=== PATIENT | female | born 1990 | race Two or more races ===

== ENCOUNTER 2018-12-07 17:50 | Emergency (ER) | payer OTHER ==
--- NOTE | 2018-12-07 18:09 | ED ---
Dizziness - HPI Summary HPI Summary: This pt is a 28 y/o female presenting to [facility] c/o feeling faint and dizzy today. Friend reports they were walking outside for about 20 minutes and upon approaching [place] pt began to feel "faint." Pt states she felt like she was hearing less and less. She also notes she was spacing out of the conversation, "but not normal zoning out." Denies chest pain, SOB, nausea, vomiting. She notes she had cold symptoms for the past few days, denies symptoms now. Pt reports a cough, for which she is taking an OTC medication. Denies fever. PMHx includes hypothyroidism, hidradenitis suppurativa. Her medications include thyroid medications, multivitamins. She admits to smoking marijuana last night. Denies tobacco and alcohol use. LMP: 3 weeks ago. Denies contraceptive pills. - History Of Current Complaint Chief Complaint: EDDizziness Stated Complaint: ZONING OUT, FEELING GIDDY PER PT FRIEND Time Seen by Provider: 12/07/18 17:59 Hx Obtained From: Patient, Other: - Friend Onset/Duration: Suddenly Timing: Minutes Severity Currently: Moderate Aggravating Factor(s): Nothing Alleviating Factor(s): Nothing Associated Signs And Symptoms: Negative: Chest Pain, SOB, Fever, Chills - Allergies/Home Medications Allergies/Adverse Reactions: Allergies Allergy/AdvReac Type Severity Reaction Status Date / Time No Known Allergies Allergy Verified 12/07/18 17:54 PMH/Surg Hx/FS Hx/Imm Hx Endocrine/Hematology History: Reports: Hx Thyroid Disease - Hypothyroidism, Autoimmune Disease - hidradenitis suppurativa Cardiovascular History: Denies: Hx Hypertension Neurological History: Denies: Hx Seizures - Surgical History Surgery Procedure, Year, and Place: Removal of subcutaneous growth (local anesthesia) - February 2018. Infectious Disease History: No Infectious Disease History: Denies: Traveled Outside the [place] in Last 30 Days - Family History Known Family History: Negative: Cardiac Disease - Social History Alcohol Use: None Substance Use Type: Reports: Marijuana Smoking Status (MU): Never Smoked Tobacco Review of Systems Negative: Fever Negative: Chest Pain Positive: Cough. Negative: Shortness Of Breath Negative: Vomiting, Nausea Neurological: Other - POS: dizziness, spacing out, All Other Systems Reviewed And Are Negative: Yes Physical Exam - Summary Physical Exam Summary: VITAL SIGNS: Reviewed. GENERAL: Patient is a well-developed and obese male who is lying comfortable in the stretcher. Patient is not in any acute respiratory distress. HEAD AND FACE: No signs of trauma. No ecchymosis, hematomas or skull depressions. No sinus tenderness. EYES: PERRLA, EOMI x 2, No injected conjunctiva, no nystagmus. EARS: Hearing grossly intact. Ear canals and tympanic membranes are within normal limits. MOUTH: Oropharynx within normal limits. NECK: Supple, trachea is midline, no adenopathy, no JVD, no carotid bruit, no c- spine tenderness, neck with full ROM. CHEST: Symmetric, no tenderness at palpation LUNGS: Clear to auscultation bilaterally. No wheezing or crackles. CVS: Tachycardic rate and regular rhythm, S1 and S2 present, no murmurs or gallops appreciated. Patient is hypertensive. ABDOMEN: Soft, non-tender. No signs of distention. No rebound no guarding, and no masses palpated. Bowel sounds are normal. EXTREMITIES: FROM in all major joints, no edema, no cyanosis or clubbing. NEURO: Alert and oriented x 3. No acute neurological deficits. Speech is normal and follows commands. SKIN: Dry and warm Triage Information Reviewed: Yes Vital Signs On Initial Exam: Initial Vitals Temp Pulse Resp BP Pulse Ox 96.2 F 126 20 180/122 99 12/07/18 17:52 12/07/18 17:52 12/07/18 17:52 12/07/18 17:52 12/07/18 17:52 Vital Signs Reviewed: Yes Diagnostics - Vital Signs Vital Signs Temp Pulse Resp BP Pulse Ox 12/07/18 17:52 96.2 F 126 20 180/122 99 - Laboratory Result Diagrams: 12/07/18 18:24 12/07/18 18:24 Lab Statement: Any lab studies that have been ordered have been reviewed, and results considered in the medical decision making process. - Radiology Chest XR Radiology Interpretation Completed By: ED Physician Summary of Radiographic Findings: Negative chest XR. Pending official radiology report. - EKG 18:25 Cardiac Rate: Tachycardia - at 105 bpm EKG Rhythm: Sinus Tachycardia EKG Comparison: Other - No old EKG for comparison Summary of EKG Findings: Q wave in leads III and aVF. ST elevation, probable normal early repolarization pattern. Re-Evaluation - Re-Evaluation First Eval Re-Evaluation Time: 16:05 Comment: Manual blood pressure is 178/100. Second Eval Re-Evaluation Time: 19:00 Comment: Friend reports the pt ate a brownie that had marijuana in it. She didn' t know until now. Pt states she probably had double dose of marijuana. Dizzy Course/Dx - Course Assessment/Plan: This pt is a 28 y/o female presenting to [facility] c/o feeling faint and dizzy today. Friend reports they were walking outside for about 20 minutes and upon approaching [place] pt began to feel "faint." Pt states she felt like she was hearing less and less. She also notes she was spacing out of the conversation, "but not normal zoning out." Denies chest pain, SOB, nausea, vomiting. She notes she had cold symptoms for the past few days, denies symptoms now. Pt reports a cough, for which she is taking an OTC medication. Denies fever. PMHx includes hypothyroidism, hidradenitis suppurativa. Her medications include thyroid medications, multivitamins. She admits to smoking marijuana last night. Denies tobacco and alcohol use. LMP: 3 weeks ago. Denies contraceptive pills. Blood work is ordered and is still pending. Patient is hemodynamically stable. The patient is feeling better. The patient is not in any distress. At this time the patient will be signed out to Dr. Ulloa to follow up the blood work and further assessment and disposition of this patient. - Diagnoses Provider Diagnoses: Dizziness Discharge - Sign-Out/Discharge Documenting (check all that apply): Sign-Out Patient Signing out patient TO: Fidel Ulloa - pending lab results and dispo Patient Received Moderate/Deep Sedation with Procedure: No - Discharge Plan Condition: Stable Referrals: No Primary Care Phys,NOPCP [Primary Care Provider] - - Attestation Statements Document Initiated by Scribe: Yes Documenting Scribe: Eliana Bowles Provider For Whom Scribe is Documenting (Include Credential): Bradley Becerra MD Scribe Attestation: Eliana Solis, scribed for Bradley Becerra MD on 12/07/18 at 1900. Status of Scribe Document: Ready
[2018-12-07 18:32] LABS: ABS Basophils 0.2 10^3/ul (0-0.2); ABS Eosinophils 0.2 10^3/ul (0-0.6); ABS Lymphocytes 4.5 10^3/ul (1.0-4.8); ABS Monocytes 0.5 10^3/ul (0-0.8); ABS Neutrophils 6.3 10^3/ul (1.5-7.7); ABS Nucleated RBC 0 10^3/ul; Eosinophil % 1.6 %; Hematocrit 38 % (33-41); Hemoglobin 12.6 g/dL (12.0-16.0); Lymphocyte % 38.4 %; Mean Corpuscular HGB Conc 33 g/dL (31-36); Mean Corpuscular Hemoglobin 28 pg (27-31); Mean Corpuscular Volume 85 fL (80-97); Nucleated Red Blood Cells % 0.1; Platelet Count 340 10^3/uL (150-450); Red Blood Count 4.46 10^6 /uL (3.70-4.87); Red Cell Distribution Width 14 % (10.5-15); White Blood Count 11.7 10^3/uL (3.5-10.8)
[2018-12-07 18:40] LABS: Influenza A Molecular NEGATIVE (Negative); Influenza B Molecular NEGATIVE (Negative)
[2018-12-07 18:52] LABS: ALT 32 U/L (7-52); Albumin 4.2 g/dL (3.2-5.2); Albumin/Globulin Ratio 1.1 (1-3); Alkaline Phosphatase 64 U/L (34-104); BUN/Creatinine Ratio 20.3 (8-20); Blood Urea Nitrogen 14 mg/dL (6-24); CO2 Carbon Dioxide 22 mmol/L (22-32); Calcium 9.3 mg/dL (8.6-10.3); Chloride 102 mmol/L (101-111); EGFR African American 120.9 (>60); EGFR Non-African American 99.9 (>60); Glucose 159 mg/dL (70-100); Sodium 136 mmol/L (135-145); Total Protein 8.2 g/dL (6.4-8.9)
[2018-12-07 18:53] LABS: Troponin I 0.01 ng/mL (<0.04)
--- NOTE | 2018-12-07 19:12 | ED ---
Progress - Progress Note Progress Note: The pt is a signout from Dr. Becerra to Dr. Ulloa pending bloodwork results. Re-Evaluation - Re-Evaluation First Eval Re-Evaluation Time: 16:05 Comment: Manual blood pressure is 178/100. Second Eval Re-Evaluation Time: 19:00 Comment: Friend reports the pt ate a brownie that had marijuana in it. She didn' t know until now. Pt states she probably had double dose of marijuana. Third Eval Re-Evaluation Time: 20:20 Change: Improved Comment: The pt is stable, ambulating around the ED appropriately, and ready for discharge. Course/Dx - Course Course Of Treatment: The pt is a signout from Dr. Becerra to Dr. Ulloa pending bloodwork results. The pt ambulated around the ED at 2019 and she is stable and ready for discharge. She will be sent home with a dx of marijuana use. - Diagnoses Provider Diagnoses: Marijuana use Discharge - Sign-Out/Discharge Documenting (check all that apply): Patient Departure, Receiving Sign-Out Receiving patient FROM: Bradley Becerra Patient Received Moderate/Deep Sedation with Procedure: No - Discharge Plan Condition: Stable Disposition: HOME Referrals: [facility] [Outside] Additional Instructions: Return to the emergency department with any new or worsening symptoms. - Attestation Statements Document Initiated by Scribe: Yes Documenting Scribe: Lashay Song Provider For Whom Makayla is Documenting (Include Credential): Fidel Ulloa MD. Scribe Attestation: Lashay Solis, scribed for Fidel Ulloa MD. on 12/07/18 at 2020. Status of Scribe Document: Ready
[2018-12-07 19:13] LABS: AST 22 U/L (13-39); Anion Gap 12 mmol/L (2-11); Magnesium 1.9 mg/dL (1.9-2.7); Potassium 3.6 mmol/L (3.5-5.0)
[2018-12-07 19:28] LABS: Alcohol < 10 mg/dL (<10)
[2018-12-07 19:35] LABS: TSH (Thyroid Stimulating Horm) 5.79 mcIU/mL (0.34-5.60)
[2018-12-07 20:28] VITALS: BP 149/99
== END 2018-12-07 20:22 | disposition home or self-care (01) ==
LOC: ED 17:50
DX: R42 Dizziness and giddiness (principal); F12.90 Cannabis use, unspecified, uncomplicated; R05 Cough; R00.0 Tachycardia, unspecified; E03.9 Hypothyroidism, unspecified; L73.2 Hidradenitis suppurativa
CPT/HCPCS: 36415; 71046; 80053; 80320; 83605; 83735; 83880; 84443; 84484; 85025; 85379; 93005; 99282; G0480

== ENCOUNTER 2021-08-15 17:10 | Inpatient (IN) ==
[2021-08-15] MEDS ORDERED: Nitro 2% OINT (Nitroglycerin) 1 INCH/PAK TOPICAL ONE (18:59)
[2021-08-15 19:03] LABS: ABS Basophils 0.1 10^3/ul (0-0.2); ABS Eosinophils 0.1 10^3/ul (0-0.6); ABS Lymphocytes 1.9 10^3/ul (1.0-4.8); ABS Monocytes 0.4 10^3/ul (0-0.8); ABS Neutrophils 7.6 10^3/ul (1.5-7.7); Eosinophil % 0.6 %; Hematocrit 36 % (35-47); Hemoglobin 11.6 g/dL (12.0-16.0); Lymphocyte % 19.2 %; Mean Corpuscular HGB Conc 32 g/dL (31-36); Mean Corpuscular Hemoglobin 27 pg (27-31); Mean Corpuscular Volume 85 fL (80-97); Nucleated Red Blood Cells % 0.1; Platelet Count 343 10^3/uL (150-450); Red Blood Count 4.26 10^6 /uL (3.70-4.87); Red Cell Distribution Width 19 % (10-15); White Blood Count 10.1 10^3/uL (3.5-10.8)
[2021-08-15] MEDS ORDERED: Furosemide 20 mg/2 ml IV VIAL IV ONE (19:17)
[2021-08-15 19:19] LABS: Influenza A Molecular Negative (Negative); Influenza B Molecular Negative (Negative); Rapid COVID-19 Molecular Undetected (Undetected)
[2021-08-15 19:20] LABS: ALT 17 U/L (7-52); AST 21 U/L (13-39); Albumin 3.9 g/dL (3.2-5.2); Albumin/Globulin Ratio 0.9 (1-3); Alkaline Phosphatase 80 U/L (35-149); Anion Gap 8 mmol/L (2-11); Blood Urea Nitrogen 13 mg/dL (6-24); CO2 Carbon Dioxide 23 mmol/L (22-32); Calcium 9.4 mg/dL (8.6-10.3); Chloride 104 mmol/L (101-111); Globulin 4.3 g/dL (2-4); Glucose 117 mg/dL (70-100); Magnesium 1.9 mg/dL (1.9-2.7); Potassium 4.2 mmol/L (3.5-5.0); Sodium 135 mmol/L (135-145); Total Protein 8.2 g/dL (6.4-8.9); eGFR CKD-EPI 101.2 (>60)
[2021-08-15 19:25] LABS: HCG Pregnancy < 0.60 mIU/mL
[2021-08-15 19:39] LABS: Troponin I 0.05 ng/mL (<0.03)
[2021-08-15] MEDS ORDERED: Iodixanol (CONTRAST) 320 MG/ML 100 ML SDV IV ONE (20:42)
[2021-08-15] MEDS ORDERED: Albuterol HFA INHALER 8 gm MDI INH PRN (21:35)
[2021-08-15 21:36] LABS: C Reactive Protein 25.94 mg/L (<8.01)
[2021-08-15 21:44] LABS: Erythrocyte Sed Rate 27 mm/Hr (0-19)
[2021-08-15 21:55] LABS: Urine Appearance Clear; Urine Bilirubin Negative (Negative); Urine Blood Negative (Negative); Urine Color Yellow; Urine Glucose Negative (Negative); Urine Ketones Negative (Negative); Urine Nitrite Negative (Negative); Urine Protein 1+(30 mg/dL) (Negative); Urine Specific Gravity 1.005 (1.002-1.030); Urine Urobilinogen Negative (Negative)
[2021-08-15 22:03] LABS: Urine Bacteria Absent (Absent); Urine Red Blood Cell Absent (Absent); Urine Squamous Epithelial Cell Present (Absent); Urine White Blood Cell Absent (Absent)
[2021-08-15] MEDS ORDERED: Furosemide 40 mg/4 ml IV VIAL IV SLOW PU ONE (22:23)
[2021-08-15 22:43] LABS: TSH Ultra Thyroid Stim Horm 5.89 mcIU/mL (0.34-5.60)
[2021-08-15 23:25] LABS: Creatine Kinase 41 U/L (10-223)
[2021-08-15] MEDS ORDERED: Labetalol IV 5 MG/ML 20 ml VIAL IV PUSH ONE (23:25)
[2021-08-15] MEDS: Enoxaparin 40 MG/0.4 ML SYR SUBCUT SCH (23:32)
[2021-08-15 23:56] LABS: T4, Total 12.51 mcg/dL (6.09-12.23)
[2021-08-16 00:10] LABS: Troponin I 0.04 ng/mL (<0.03)
[2021-08-16 01:41] LABS: Urine Benzodiazepine Screen None Detected (None Detect); Urine Cannabinoids Screen None Detected (None Detect); Urine Opiates Screen None Detected (None Detect)
[2021-08-16] MEDS ORDERED: Labetalol IV 5 MG/ML 20 ml VIAL IV PUSH ONE (03:45)
[2021-08-16] MEDS: Labetalol IV 5 MG/ML 20 ml VIAL IV PUSH PRN ×3 (06:15→20:45)
[2021-08-16] MEDS: Enoxaparin 40 MG/0.4 ML SYR SUBCUT SCH (20:44)
[2021-08-17] MEDS ORDERED: Labetalol IV 5 MG/ML 20 ml VIAL IV PUSH ONE (00:28)
[2021-08-17 05:51] LABS: ABS Basophils 0.1 10^3/ul (0-0.2); ABS Eosinophils 0.1 10^3/ul (0-0.6); ABS Monocytes 0.4 10^3/ul (0-0.8); ABS Neutrophils 5.6 10^3/ul (1.5-7.7); Eosinophil % 1.5 %; Hematocrit 35 % (35-47); Lymphocyte % 24.1 %; Mean Corpuscular HGB Conc 32 g/dL (31-36); Mean Corpuscular Hemoglobin 27 pg (27-31); Mean Corpuscular Volume 86 fL (80-97); Mean Platelet Volume 8.8 fL (7.4-10.4); Nucleated Red Blood Cells % 0.1; Platelet Count 312 10^3/uL (150-450); Red Blood Count 4.05 10^6 /uL (3.70-4.87); Red Cell Distribution Width 19 % (10-15); White Blood Count 8.2 10^3/uL (3.5-10.8)
[2021-08-17 06:24] LABS: Albumin 3.5 g/dL (3.2-5.2); Albumin/Globulin Ratio 0.9 (1-3); Calcium 9.2 mg/dL (8.6-10.3); Globulin 4.1 g/dL (2-4); Potassium 3.8 mmol/L (3.5-5.0); Total Bilirubin 0.8 mg/dL (0.2-1.0); Total Protein 7.6 g/dL (6.4-8.9); eGFR CKD-EPI 98.2 (>60)
[2021-08-17] MEDS ORDERED: Flu vaccine *QUAD* 2021-22* 0.5 ML SYRINGE IM ONE (09:00)
[2021-08-17] MEDS: Labetalol IV 5 MG/ML 20 ml VIAL IV PUSH PRN (13:14)
[2021-08-17] MEDS: Enoxaparin 40 MG/0.4 ML SYR SUBCUT SCH (20:33)
[2021-08-17 21:15] LABS: Anaplasma phagocytophilum Negative (Negative); B. miyamotoi PCR, B Negative (Negative); Babesia divergens/MO-1 Negative (Negative); Babesia ducani Negative (Negative); Ehrlichia chaffeensis Negative (Negative); Ehrlichia ewingii/canis Negative (Negative); Ehrlichia muris eauclairensis Negative (Negative)
[2021-08-18 08:44] LABS: ABS Basophils 0.1 10^3/ul (0-0.2); ABS Eosinophils 0.2 10^3/ul (0-0.6); ABS Lymphocytes 1.5 10^3/ul (1.0-4.8); ABS Monocytes 0.4 10^3/ul (0-0.8); ABS Neutrophils 5.4 10^3/ul (1.5-7.7); Eosinophil % 2.2 %; Hematocrit 34 % (35-47); Hemoglobin 11.2 g/dL (12.0-16.0); Mean Corpuscular HGB Conc 33 g/dL (31-36); Mean Corpuscular Hemoglobin 28 pg (27-31); Mean Corpuscular Volume 85 fL (80-97); Mean Platelet Volume 8.9 fL (7.4-10.4); Nucleated Red Blood Cells % 0.1; Platelet Count 313 10^3/uL (150-450); Red Blood Count 4.03 10^6 /uL (3.70-4.87); Red Cell Distribution Width 19 % (10-15); White Blood Count 7.6 10^3/uL (3.5-10.8)
[2021-08-18] MEDS ORDERED: Flu vaccine *QUAD* 2021-22* 0.5 ML SYRINGE IM ONE (09:00)
[2021-08-18 09:02] LABS: Calcium 9.3 mg/dL (8.6-10.3); Potassium 3.7 mmol/L (3.5-5.0); eGFR CKD-EPI 104.4 (>60)
[2021-08-18 12:04] VITALS: BP 166/110
[2021-08-21 17:32] LABS: Renin 1.2 ng/mL/h
== END 2021-08-18 14:05 | disposition home or self-care (01) | DRG 291 ==
LOC: ED 17:10 → EDHOLD 21:37 → MED 08-16 03:43
PROVIDERS: ADMIT Hospitalist; ATTEND Internal Medicine